=== PATIENT | female | born 1975 | race African-American/Black ===

== ENCOUNTER 2016-10-04 21:41 | Emergency (ER) | payer BC ==
[~2016-10-04] VITALS: Ht 167.6 cm; Wt 110.5 kg
[2016-10-04 22:42] LABS: HEMATOCRIT 42.1 % (36.0-46.0); MCV 90.7 FL (83-99); MEAN PLAT.VOLUME 10.3 uM^3 (9.5-12.4); PLATELET COUNT 331 K/uL (156-360); RBC DIS.WIDTH-CV 12.6 % (11.8-14.6); RBC DIS.WIDTH-SD 41.1 % (39-53); RED BLOOD COUNT 4.64 M/uL (3.80-5.20); WHITE BLOOD COUNT 9.7 K/uL (4.1-10.2)
[2016-10-04 22:57] LABS: CHLORIDE 106 mEq/L (99-109); SODIUM 141 mEq/L (136-147)
[2016-10-04 22:58] LABS: GLUCOSE 74 mg/dL (70-99)
[2016-10-04 23:00] LABS: ANION GAP 12 MEQ/L (2-14)
[2016-10-04 23:02] LABS: GFR ESTIMATE (CALCULATED) > 59 mL/min/
[2016-10-04 23:03] LABS: UREA NITROGEN (BUN) 14 mg/dL (9-23)
[2016-10-04 23:12] LABS: TROP-I INTERPRETATION NEGATIVE; TROPONIN-I < 0.01 ng/mL (0.0-0.30)
[2016-10-05 02:00] LABS: TROP-I INTERPRETATION NEGATIVE; TROPONIN-I < 0.01 ng/mL (0.0-0.30)
[2016-10-05 03:17] LABS: QUANTITATIVE HCG < 4.0 MIU/ML
[2016-10-05 04:07] VITALS: BP 122/70
== END 2016-10-05 04:09 | disposition home or self-care (01) ==
LOC: EME 21:41
DX: R07.9 Chest pain, unspecified (principal); M79.89 Other specified soft tissue disorders
CPT/HCPCS: 71020; 80048; 84484; 84702; 85027; 93005; 93971; 99281; 99283